=== PATIENT | male | born 1995 ===

== ENCOUNTER 2021-05-03 03:13 | Emergency (ER) | payer SELFPAY ==
[~2021-05-03] VITALS: Ht 160 cm; Wt 63.5 kg
[2021-05-03 03:14] VITALS: BP 142/91
== END 2021-05-03 05:20 | disposition left against medical advice (07) ==
LOC: ER 03:13
DX: F10.120 Alcohol abuse with intoxication, uncomplicated (principal); Z53.21 Procedure and treatment not carried out due to patient leaving prior to being seen by health care provider; Y08.89XA Assault by other specified means, initial encounter; Y93.89 Activity, other specified; Y92.89 Other specified places as the place of occurrence of the external cause; Y99.8 Other external cause status